=== PATIENT | male | born 1970 | race African-American/Black ===

== ENCOUNTER 2018-09-11 09:12 | Day surgery (SDC) | payer OTHER ==
[~2018-09-11] VITALS: Ht 182.9 cm; Wt 118.8 kg
[~2018-09-11 09:12] MED LIST: AMLO10TA4 PO; ARIP5TAB13 PO; BACL10TA PO; BUTA1CAP31 PO; CETI10TA22 PO; CHOL10003 PO; CYCL15CA19 PO; DIAZ5TAB PO; DOCU-199 PO; ESOM40CA PO; HYDR10TA2 PO; HYDROmorphone 2 MG/ML VIAL IV PRN; IV RINGERS,LACTATED 1000ML 1,000 ML IV SCH; LIDOCAINE 1% PF 2 ML VIAL. ID PRN; LISI-130 PO; MORPHINE SULFATE 2 MG/ML VIAL. IV PRN; ONDANSETRON PF 4 MG/2 ML VIAL. IV PRN; OXYC1TAB22 PO; PANT40GR PO; PREG75CA PO; PROCHLORPERAZINE 10 MG/2 ML VIAL. IV PRN; fentaNYL PF VIAL 100 MCG/2 ML VIAL IV PRN
[2018-09-11] MEDS ORDERED: BUPIVAC MPF-EPI 0.5%-1:200000 30 ML VIAL. ONE (09:28)
[2018-09-11] MEDS ORDERED: MIDAZOLAM HCL/PF 2 MG/2 ML VIAL. ONE (09:58)
[2018-09-11] MEDS ORDERED: fentaNYL PF VIAL 100 MCG/2 ML VIAL ONE (09:58)
[2018-09-11] MEDS ORDERED: ONDANSETRON PF 4 MG/2 ML VIAL. ONE (09:58)
[2018-09-11] MEDS ORDERED: DEXAMETHASONE SOD PHOS 4 MG/ML VIAL ONE (09:58)
[2018-09-11] MEDS ORDERED: PROPOFOL 20 ML IV ONE (09:58)
[2018-09-11] MEDS ORDERED: LIDOCAINE 2% PF 5 ML VIAL. ONE (09:58)
[2018-09-11] MEDS ORDERED: SEVOFLURANE 16 TO 30 MINUTES. IH ONE (10:08)
[2018-09-11] MEDS ORDERED: CLINDAMYCIN 900MG PREMIX 50 ML IV PRN (10:30)
[2018-09-11] MEDS ORDERED: oxyCODONE/APAP 7.5/325 1 TAB TABLET PO ONE (12:30)
[2018-09-11] MEDS ORDERED: OXYC1TAB19 PO (12:31)
--- NOTE | 2018-09-11 12:34 | DISCH ---
DISCHARGE INSTRUCTIONS Condition on Discharge Condition on Discharge: Stable Activity After Discharge Activity Instructions for Disc: Other, see below (slow return to activity as tolerated, limitations only as symptomatically necessary) Weight Bearing Status after Di: As tolerated Diet after Discharge Diet after Discharge: Regular Wound Incision Care Wound/Incision Care: Change dressing (May remove dressing in 2 days may then shower no soaking until sutures removed) Contacting the after DC Call your doctor for: Concerns you may have Follow-Up Follow up with: Dr. Lakhani 10 days VALENTINA LAKHANI MD September 11, 2018 12:34
--- NOTE | 2018-09-11 12:52 | PDOC4 ---
Operative Note Operative Note Date of surgery, 09/11/2018 Preoperative diagnosis: Right knee concern for instability possible ACL injury Postoperative diagnosis: ACL appeared intact, complex tear posterior horn medial meniscus, chondral flap tear medial femoral condyle with large central cartilage defect, free edge tearing lateral meniscus Operative procedure: Right knee arthroscopy partial medial and lateral meniscectomy, chondroplasty medial femoral condyle Surgeon: Lesvia Anesthesia: Gen. Estimated blood loss: 5 mL Complications: None Operative indications: Please see my preoperative note for detailed operative indications and note the patient has been having some pain swelling and mechanical symptoms with instability. He was unable to undergo an MRI due to a spinal cord stimulator. I had gone over with him the possibility of continued observation versus examination under anesthesia and a diagnostic arthroscopy and addressing appropriately any pathological conditions found with the possibility among others of ACL reconstruction. And the possible risks of infection continued pain nerve or blood vessel damage medical or other anesthetic complications among others and the fact that I cannot undo any degenerative changes that are present and those would have to be symptomatically treated on an ongoing basis. Operative text: Patient was identified procedure verified patient placed in the supine position on the operating table and the right lower extremity was prepped and draped in standard sterile fashion with a thigh tourniquet. After timeout was performed patient procedure identified and verified the right lower extremity was examined under anesthesia found to have good patellofemoral tracking full range of motion and a good endpoint on Vance and anterior drawer testing with only slight increase in translation compared to the contralateral side which I would rate at really a 1+ grade ACL laxity. The right lower extremity was then Exsanguinated by Esmarch bandage tourniquet inflated to 350 mmHg a lateral portal was established a medial portal established using spinal needle localization and the knee joint was systematically examined. Patellofemoral joint was noted to be in good condition and some very small loose cartilage flakes were noted in the gutters or suprapatellar pouch and removed through the arthroscopic shaver. He was found to have a displaceable tear of the posterior horn of the medial meniscus which was trimmed back to stable tissue and radiused appropriately. He also had about a 1 cm swath of central cartilage defect over the entire weightbearing surface of the medial femoral condyle and any loose fragments associated with a medial chondral flap tear were lightly debrided back to stable tissue. There was essentially a full-thickness defect was noted in the cartilage throughout the central longitudinal swath of cartilage wear. ACL was probed and found to be intact with minimal laxity and no evidence of acute injury as it was not red or angry appearing or noted to have any specific defect either mid substance or insertional areas. Lateral meniscus was found to have some free edge tearing which was trimmed back to stable tissue using arthroscopic punch and shaver lateral compartment cartilage was noted to be intact. No further loose bodies or additional cartilage fragments were discovered and the knee joint was then drained of arthroscopic fluid portals closed with nylon suture. Injection carried out with half percent plain Marcaine sterile dressings were applied patient was returned recovery room in stable condition having tolerated procedure well toes were noted be warm pink find deflation of the tourniquet VALENTINA FISCHER MD September 11, 2018 12:51
[2018-09-11 13:20] VITALS: BP 166/74
--- NOTE | 2018-09-21 12:19 | HP ---
ADMIT DATE: 09/11/2018 CHIEF COMPLAINT: Right knee pain and instability. HISTORY: The patient has ongoing right knee pain with a suspected ACL or meniscal injury. He was unable to have an MRI due to spinal stimulator, which was unable to be put in an MRI safe situation. PAST MEDICAL HISTORY: Significant for hypertension. PAST SURGICAL HISTORY: Right shoulder surgery, appendectomy, cholecystectomy and back surgery. FAMILY HISTORY: Denies family history. SOCIAL HISTORY: Denies smoking, alcohol or drug use. MEDICATION LIST: Includes [place], Protonix, Norvasc, losartan. ALLERGIES: Include PENICILLIN. REVIEW OF SYSTEMS: No chest pain, shortness of breath, fever, chills or other constitutional symptoms. PHYSICAL EXAMINATION: VITAL SIGNS: Per admission sheet, temp afebrile. HEENT: Atraumatic, normocephalic. HEART: Regular rate and rhythm. LUNGS: Clear to auscultation bilaterally. ABDOMEN: Benign. EXTREMITIES: Examination of the right knee reveals some slight effusion, medial joint line tenderness, positive Carlos A's. He has a good endpoint, but slight laxity of the ACL on Vance testing. Normal examination of the contralateral knee aside from bilateral patellofemoral crepitus; normal alignment, stability of bilateral hips and ankles. IMPRESSION: Suspicion of meniscus tear or other mechanical issues, possible instability, right knee. TREATMENT PLAN: We went over possibility of examination under anesthesia and diagnostic arthroscopy, possible anterior cruciate ligament reconstruction which we prepared for and that we would treat his symptoms symptomatically as needed. I did go over with him that I could not undo any wear and tear type conditions and those would have to be dealt with an ongoing basis. Further, we covered risks, benefits, postoperative course of potential surgical procedures including the possibility of infection, nerve or blood vessel damage, instability, continued pain, medical or other anesthetic complications among others. All of his questions were answered and he wishes to proceed with surgical evaluation and treatment, which will be scheduled at his convenience. VALENTINA FISCHER MD DR: CRISTIANO/hilario JOB#: [id number] / [id number]
== END 2018-09-11 13:20 | disposition home or self-care (01) ==
LOC: SURG 09:12
PROVIDERS: ATTEND Orthopaedic Surgery
DX: S83.231A Complex tear of medial meniscus, current injury, right knee, initial encounter (principal); S83.281A Other tear of lateral meniscus, current injury, right knee, initial encounter; I10 Essential (primary) hypertension; Z90.49 Acquired absence of other specified parts of digestive tract; Z98.890 Other specified postprocedural states; Z79.899 Other long term (current) drug therapy; Z88.0 Allergy status to penicillin; X58.XXXA Exposure to other specified factors, initial encounter; Y93.89 Activity, other specified; Y92.89 Other specified places as the place of occurrence of the external cause; Y99.8 Other external cause status
CPT/HCPCS: 29880; A7015; J1100; J2250; J2405; J2704; J3010; J3490; J2001